=== PATIENT | male | born 1970 | race African-American/Black ===

== ENCOUNTER 2018-10-25 17:04 | Emergency (ER) | payer BC ==
[~2018-10-25] VITALS: Ht 182.9 cm; Wt 86.2 kg
[~2018-10-25 17:04] MED LIST: IBUPROFEN600 MG ORAL
[2018-10-25] MEDS ORDERED: NKM (17:14)
[2018-10-25 17:29] VITALS: BP 127/88
[2018-10-25] MEDS ORDERED: HYDROcodone/Acetamin 5/325 tab PO ONE (17:45)
[2018-10-25] MEDS ORDERED: Neosporin Oint Ud Pkt TOP ONE (17:45)
[2018-10-25] MEDS ORDERED: NORCO 5-325 TA1 EACH ORAL (18:32)
[2018-10-25] MEDS ORDERED: IBUPROFEN600 MG ORAL (18:32)
[2018-10-25] MEDS ORDERED: Bacitracin Oint UD TOPIC ONE (18:46)
[2018-10-25 18:52] VITALS: BP 123/63
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
--- NOTE | 2018-10-26 12:05 | Diagnostic Imaging Report ---
Indication: Knee Pain 3 views of the left knee were obtained. Findings: No acute fracture, malalignment, or joint effusion are identified. Joint space is relatively well-maintained. Impression: Negative for acute injury
--- NOTE | 2018-10-26 12:06 | Diagnostic Imaging Report ---
Indication: Foot pain Comparison: None Findings: 3 views of the left foot were obtained. No acute fractures, malalignment, erosions or periostitis are identified. Soft tissues are unremarkable. Impression: No acute findings
--- NOTE | 2018-10-26 12:08 | Diagnostic Imaging Report ---
Indication: left ankle pain Comparison: None Findings: 3 views of the left ankle obtained. There is a mild nondisplaced fracture involving the lateral malleolus at the inferior tip of the fibula. Soft tissue swelling noted. There is no malalignment. IMPRESSION: Suspected acute fracture involving the inferior tip of the distal fibula
== END 2018-10-25 18:54 | disposition home or self-care (01) ==
LOC: EMR 17:25
DX: S99.912A Unspecified injury of left ankle, initial encounter (principal); V23.4XXA Motorcycle driver injured in collision with car, pick-up truck or van in traffic accident, initial encounter; Y92.410 Unspecified street and highway as the place of occurrence of the external cause
CPT/HCPCS: 29515; 99284